=== PATIENT | male | born 1990 | race Caucasian/White ===

== ENCOUNTER → 2022-03-31 12:55 | Outpatient (BNVA) | payer OTHER, SELFPAY | PROVIDERS: PCP Pediatrics; Visit Provider Hospitalist | DX: Z13.89 Encounter for screening for other disorder (principal) ==

== ENCOUNTER 2022-07-04 13:01 | Outpatient (REF) | payer OTHER, SELFPAY ==
--- NOTE | 2022-07-04 | PFT_ITS ---
Forced vital capacity 87%, FEV1 97%. FEF 25/75 128% and MVV 90%. Post bronchodilator therapy, there is no change. Total lung capacity 93%. Residual volume 110%. Diffusion capacity 102%. CONCLUSION: Normal pulmonary function test. No evidence of obstructive or restrictive pulmonary disorder. MD JEAN Leblanc/[facility] / [id number]
== END 2022-07-04 13:02 | disposition home or self-care (01) ==
LOC: HO.RESP 13:01
PROVIDERS: Visit Provider Hospitalist
DX: J45.909 Unspecified asthma, uncomplicated (principal)
CPT/HCPCS: 94060; 94727; 94729

== ENCOUNTER 2022-08-08 08:25 | Outpatient (REF) | payer OTHER, SELFPAY | END 2022-08-08 08:26 | disposition home or self-care (01) | LOC: HO.MDS 08:25 | PROVIDERS: Visit Provider Hospitalist | DX: J45.50 Severe persistent asthma, uncomplicated (principal) | CPT/HCPCS: 96372; J0517 ==

== ENCOUNTER 2022-09-07 10:08 | Outpatient (REF) | payer OTHER, SELFPAY | END 2022-09-07 10:09 | disposition home or self-care (01) | LOC: HO.MDS 10:08 | PROVIDERS: Visit Provider Hospitalist | DX: J45.50 Severe persistent asthma, uncomplicated (principal) | CPT/HCPCS: 96372; J0517 ==

== ENCOUNTER 2022-10-27 07:46 | Outpatient (REF) | payer OTHER, SELFPAY | END 2022-10-27 07:47 | disposition home or self-care (01) | LOC: HO.MDS 07:46 | PROVIDERS: Visit Provider Hospitalist | DX: J45.50 Severe persistent asthma, uncomplicated (principal) | CPT/HCPCS: 96372; J0517 ==

== ENCOUNTER 2022-12-22 09:13 | Outpatient (REF) | payer SELFPAY | END 2022-12-22 09:14 | disposition home or self-care (01) | LOC: HO.MDS 09:13 | PROVIDERS: Visit Provider Hospitalist | DX: J45.50 Severe persistent asthma, uncomplicated (principal) | CPT/HCPCS: 96372; J0517 ==